=== PATIENT | male | born 1970 | race Asian ===

== ENCOUNTER 2018-04-19 17:57 | Emergency (ER) | payer OTHER ==
[~2018-04-19] VITALS: Ht 165.1 cm; Wt 76.7 kg
[2018-04-19 18:10] VITALS: BP 128/76
--- NOTE | 2018-04-19 18:14 | NUR ---
PT AMB TO LOBBY, VSS.
--- NOTE | 2018-04-19 19:16 | NUR ---
pt ambulated to bed #9, gave report to rn.
[2018-04-19] MEDS ORDERED: NACL 0.9% 1,000 ML IV ONE (19:40)
[2018-04-19] MEDS ORDERED: PANTOPRAZOLE 40 MG INJ VIAL IVP ONE (19:40)
[2018-04-19 20:13] LABS: BASOPHILS # (AUTO) 0.1 K/uL (0.00-0.22); EOSINOPHILS # (AUTO) 0.2 K/uL (0-0.4); LYMPHOCYTES # (AUTO) 1.2 K/uL (2.0-11.5); MEAN CORPUSCULAR HEMOGLOBIN 15 pg (27-31); NEUTROPHILS # (AUTO) 2.3 K/uL (1.8-7.7); PLATELET COUNT (AUTO) 243 K/uL (140-450); RED BLOOD CELL COUNT(AUTO) 4.42 MIL/uL (4.20-6.10)
[2018-04-19 20:20] LABS: BASOPHILS % (AUTO) 2.6 % (0.0-2.0); EOSINOPHILS % (AUTO) 4.5 % (0.0-4.0); MEAN CORPUSCULAR HGB CONC 28 g/dL (33-37); MEAN CORPUSCULAR VOLUME 53.4 fL (80-94); MONOCYTES # (AUTO) 0.5 K/uL (0.8-1.0); MONOCYTES % (AUTO) 10.6 % (1.7-9.3); NEUTROPHILS % (AUTO) 54.3 % (42.2-75.2); RED CELL DISTRIBUTION WIDTH 21.4 % (11.6-13.7); WHITE BLOOD COUNT (AUTO) 4.3 K/uL (4.8-10.8)
[2018-04-19 20:30] LABS: ANION GAP 10.7 (8-16); CARBON DIOXIDE 28.4 mmol/L (21-32); CHLORIDE 105 mmol/L (98-107); CREATININE 1.1 mg/dL (0.7-1.3); GFR ARICAN-AMERICAN 91 mL/min (>90); GLUCOSE 119 mg/dL (74-106); POTASSIUM 4.1 mmol/L (3.5-5.1); SODIUM SERUM 140 mmol/L (136-145); UREA NITROGEN, BLOOD 11 mg/dL (7-18)
[2018-04-19 20:33] LABS: PROTHROMBIN TIME 11.1 secs (10.8-13.4)
[2018-04-19 20:36] LABS: HEMATOCRIT 23.6 % (36-52); HEMOGLOBIN 6.6 g/dL (12.0-18.0)
[2018-04-19 20:38] LABS: ALBUMIN 3.9 g/dL (3.4-5.0); ASPARTATE AMINOTRANSFERASE 10 U/L (15-37); TOTAL BILIRUBIN 0.3 mg/dL (0.0-1.0)
[2018-04-19 20:41] LABS: ACETAMINOPHEN < 0.5 ug/ml (10-30); SALICYLATE < 2.8 mg/dL (2.8-20.0)
--- NOTE | 2018-04-19 21:25 | NUR ---
SPOKE TO COOKIE FROM [facility], POSSIBLE TRANSFER TO ANOTHER FACILITY FOR CONTINUITY OF CARE. WILL CALL BACK WITH UPDATE
--- NOTE | 2018-04-19 22:24 | NUR ---
PATIENT PRESENTS TO ED WITH LOW HGB AND HCT. PT STATES HAD ABNORMAL LABS, MD ASKED TO REPORT ED, AND C/O DIZZINESS. DENIES N/V/D; SKIN IS PINK/WARM/DRY; AAOX4 WITH EVEN AND STEADY GAIT; LUNGS CLEAR BL; HR EVEN AND REGULAR; PT DENIES ANY FEVER, CP, SOB, OR COUGH AT THIS TIME; PATIENT STATES PAIN OF 0/10 AT THIS TIME; VSS; PATIENT POSITIONED FOR COMFORT; HOB ELEVATED; BEDRAILS UP X2; BED DOWN. ER MD MADE AWARE OF PT STATUS.
[2018-04-19 23:25] LABS: BARBITURATE, URINE NEG. ng/ml (NEG <=200); BENZODIAZEPINE, URINE NEG. ng/mL (NEG <=200); CANNABINOID, URINE NEG. ng/mL (NEG <=50); COCAINE, URINE NEG. ng/mL (NEG <=300); OPIATE, URINE NEG. ng/mL (NEG <=2000); PHENCYCLIDINE SCREEN,URINE NEG. ng/mL (NEG <=25)
--- NOTE | 2018-04-20 00:01 | NUR ---
CALLED [facility], REPORT GIVEN TO JENNIFER NÚÑEZ.
--- NOTE | 2018-04-20 02:03 | NUR ---
TRANSPORT LEFT ER AND IS IN ROUTE TO [facility]. PT VSS.
--- NOTE | 2018-04-20 02:03 | NUR ---
Patient to be transferred to [facility]. Is being transferred due to anemia. Receiving facility has accepting physician and available space. ER physician has signed transfer form. Patient or responsible libertarian has agreed to transfer and signed form. Patient belongings inventoried and will be sent with patient. Copy of nursing notes, lab reports, EKG, Physicians Orders and X-rays to be sent with patient. Report called to JENNIFER Lizarraga at receiving facility.
[2018-04-20 02:05] VITALS: BP 109/69
--- NOTE | 2018-04-20 02:05 | NUR ---
Report given to [facility] ambulance. VSS upon transfer. Ambulance en route. ETA approximately 30mins.
== END 2018-04-20 02:05 | disposition short-term general hospital (02) ==
LOC: MED 17:57
DX: D64.9 Anemia, unspecified (principal); I10 Essential (primary) hypertension; E78.00 Pure hypercholesterolemia, unspecified
CPT/HCPCS: 36415; 80053; 80305; 85025; 85610; 85730; 93005; 96374; 99285; C9113; G0480; G0482; J7030